=== PATIENT | female | born 1955 | race Caucasian/White ===

== ENCOUNTER → 2018-03-31 | Outpatient (CLI) | payer OTHER ==
[~2018-03-31] MED LIST: INDO50 PO; NAPR500 PO; PRENATAL VIT
[2018-03-31 12:51] LABS: Source, Urine Voided
[2018-03-31 12:57] LABS: BASOPHILS ABSOLUTE AUTO 0.03 K/mm3 (0.00-0.23); BASOPHILS PERCENT AUTO 1 % (0-2); EOSINOPHILS ABSOLUTE AUTO 0.31 K/mm3 (0.00-0.68); EOSINOPHILS PERCENT AUTO 5 % (0-6); Hemoglobin 14.8 g/dL (11.5-16.0); IMMATURE GRAN ABSOLUTE AUTO 0.01 K/mm3 (0.00-0.10); IMMATURE GRAN PERCENT AUTO 0 % (0-1); LYMPHOCYTES ABSOLUTE AUTO 1.67 K/mm3 (0.84-5.20); LYMPHOCYTES PERCENT AUTO 26 % (21-46); MONOCYTES ABSOLUTE AUTO 0.52 K/mm3 (0.16-1.47); MONOCYTES PERCENT AUTO 8 % (4-13); Mean Corpuscular HGB 30.6 pg (26.0-34.0); Mean Corpuscular HGB Conc 35.2 g/dL (31.5-36.5); Mean Corpuscular Volume 87 fL (80-100); Mean Platelet Volume 9.6 fL (9.1-12.4); NEUTROPHILS ABSOLUTE AUTO 3.81 K/mm3 (1.96-9.15); NEUTROPHILS PERCENT AUTO 60 % (41-73); Platelet Count 227 K/mm3 (150-400); RDW Coefficient Variation 11.8 % (11.7-14.2); RDW Standard Deviation 37.5 fL (35.1-46.3); Red Blood Cell Count 4.83 M/mm3 (3.80-5.20); White Blood Cell Count 6.35 K/mm3 (4.00-11.30)
[2018-03-31 13:02] LABS: Bacteria Rare /hpf; Red Blood Cells, Urine Not Seen /hpf (0-2); Squamous Epithelial Cells Few /hpf (Few)
[2018-03-31 13:03] LABS: Calcium Oxalate Crystals Mod /hpf
[2018-03-31 13:10] LABS: Alanine Aminotransfer (ALT/SGP 42 U/L (12-78); Albumin/Globulin Ratio 1.3 (0.8-1.8); Alk Phos 58 U/L (40-126); Anion Gap 10 mmol/L (6-16); Aspartate Aminotrans (AST/SGOT 24 U/L (12-37); Bilirubin, Total 0.5 mg/dL (0.1-1.0); Blood Urea Nitrogen 17 mg/dL (8-24); Bun/Creatinine Ratio 20.2 (12.0-20.0); CO2, Blood 27 mmol/L (21-32); Calcium, Blood 9.1 mg/dL (8.5-10.1); Chloride, Blood 108 mmol/L (98-108); Creatinine, Blood 0.84 mg/dL (0.40-1.00); Glomerular Filtration Rate >60 (60-); Glucose, Blood 103 mg/dL (70-99); Potassium, Blood 3.9 mmol/L (3.5-5.5); Sodium, Blood 145 mmol/L (136-145)
== END | disposition home or self-care (01) ==
LOC: LAB EV 12:49 → LAB SHORT 12:49
PROVIDERS: Physician Assistant
DX: R10.31 Right lower quadrant pain (principal)
CPT/HCPCS: 80053; 81015; 85025; 87086

== ENCOUNTER 2019-02-04 12:18 | Inpatient (IN) | payer OTHER ==
[~2019-02-04] VITALS: Ht 167.6 cm; Wt 85.6 kg
[~2019-02-04 12:18] MED LIST changes: -BISA10S PR; -CLIN300 PO; -DOCU100 PO; -ONDA4ODT MM; -SACC250C PO
[2019-02-04 12:52] LABS: BASOPHILS ABSOLUTE AUTO 0.04 K/mm3 (0.00-0.23); BASOPHILS PERCENT AUTO 0 % (0-2); EOSINOPHILS PERCENT AUTO 1 % (0-6); Hematocrit 35.2 % (33.0-51.0); Hemoglobin 12.2 g/dL (11.5-16.0); IMMATURE GRAN ABSOLUTE AUTO 0.11 K/mm3 (0.00-0.10); IMMATURE GRAN PERCENT AUTO 1 % (0-1); LYMPHOCYTES ABSOLUTE AUTO 1.53 K/mm3 (0.84-5.20); LYMPHOCYTES PERCENT AUTO 10 % (21-46); MONOCYTES ABSOLUTE AUTO 1.58 K/mm3 (0.16-1.47); MONOCYTES PERCENT AUTO 10 % (4-13); Mean Corpuscular HGB 31.4 pg (26.0-34.0); Mean Corpuscular HGB Conc 34.7 g/dL (31.5-36.5); Mean Corpuscular Volume 91 fL (80-100); Mean Platelet Volume 10.1 fL (9.1-12.4); NEUTROPHILS ABSOLUTE AUTO 12.54 K/mm3 (1.96-9.15); NEUTROPHILS PERCENT AUTO 78 % (41-73); Platelet Count 203 K/mm3 (150-400); Red Blood Cell Count 3.88 M/mm3 (3.80-5.20)
[2019-02-04 13:28] LABS: Alanine Aminotransfer (ALT/SGP 43 U/L (12-78); Albumin, Blood 2.9 g/dL (3.4-5.0); Albumin/Globulin Ratio 0.8 (0.8-1.8); Alk Phos 143 U/L (50-136); Anion Gap 7 mmol/L (6-16); Aspartate Aminotrans (AST/SGOT 27 U/L (12-37); Bilirubin, Total 0.6 mg/dL (0.1-1.0); Blood Urea Nitrogen 13 mg/dL (8-24); Bun/Creatinine Ratio 18.3 (12.0-20.0); CO2, Blood 24 mmol/L (21-32); Calcium, Blood 8.9 mg/dL (8.5-10.1); Chloride, Blood 105 mmol/L (98-108); Creatinine, Blood 0.71 mg/dL (0.40-1.00); Globulin, Blood 3.8 g/dL (2.2-4.0); Glomerular Filtration Rate >60 (60-); Glucose, Blood 85 mg/dL (70-99); Potassium, Blood 3.3 mmol/L (3.5-5.5); Sodium, Blood 136 mmol/L (136-145); Total Protein, Blood 6.7 g/dL (6.4-8.2)
[2019-02-04 15:20] LABS: Source, Urine Clean Catch
[2019-02-04 15:54] LABS: Bilirubin, Urine Neg (Neg); Blood, Urine 3+ (Neg); Glucose Qualitative, Urine Neg (Neg); Ketones, Urine 2+ (Neg); Leukocyte Esterase, Urine 1+ (Neg); Nitrite, Urine Neg (Neg); Protein, Urine 2+ (Neg); Urobilinogen, Urine NORM (Normal)
[2019-02-04 16:56] LABS: Appearance, Urine Clear (Clear); Color, Urine Yellow (P-Yellow)
[2019-02-04 18:03] LABS: Bacteria Many /hpf; Squamous Epithelial Cells Many /hpf (Few)
[2019-02-05 05:30] LABS: Hematocrit 32.6 % (33.0-51.0); Hemoglobin 10.8 g/dL (11.5-16.0); Mean Corpuscular HGB 30.9 pg (26.0-34.0); Mean Corpuscular HGB Conc 33.1 g/dL (31.5-36.5); Mean Corpuscular Volume 93 fL (80-100); Mean Platelet Volume 10.4 fL (9.1-12.4); Platelet Count 209 K/mm3 (150-400); RDW Standard Deviation 41.3 fL (35.1-46.3); White Blood Cell Count 11.23 K/mm3 (4.00-11.30)
[2019-02-05 06:10] LABS: Alanine Aminotransfer (ALT/SGP 30 U/L (12-78); Albumin, Blood 2.4 g/dL (3.4-5.0); Albumin/Globulin Ratio 0.7 (0.8-1.8); Alk Phos 126 U/L (50-136); Anion Gap 7 mmol/L (6-16); Aspartate Aminotrans (AST/SGOT 10 U/L (12-37); Bilirubin, Total 0.7 mg/dL (0.1-1.0); Blood Urea Nitrogen 7 mg/dL (8-24); Bun/Creatinine Ratio 9.4 (12.0-20.0); CO2, Blood 27 mmol/L (21-32); Calcium, Blood 8.7 mg/dL (8.5-10.1); Chloride, Blood 107 mmol/L (98-108); Creatinine, Blood 0.74 mg/dL (0.40-1.00); Globulin, Blood 3.3 g/dL (2.2-4.0); Glomerular Filtration Rate >60 (60-); Glucose, Blood 127 mg/dL (70-99); Potassium, Blood 3.6 mmol/L (3.5-5.5); Sodium, Blood 141 mmol/L (136-145); Total Protein, Blood 5.7 g/dL (6.4-8.2)
--- NOTE | 2019-02-05 06:21 | NUR ---
SHIFT SUMMARY PT AWAKE ON/OFF T/O NIGHT DUE TO USING RESTROOM & ADMIISTERING MEDICATIONS. AOX4, FOLLOWS DIRECTIONS, ANSWERS QUESTIONS APPROPRIATELY. VSS. DENIES NAUSEA OR ANY SOB. REPORTS 8/10 PAIN IN NECK DUE TO ARTHRITIS & GROIN/WALTER AREA DUE TO CELLULITIS, MEDICATED 1X W/50 MCG FENTANYL PER ORDERS. GROIN/LABIA/WALTER AREA TO GLUTEUS IS OUTLINED FROM ADMISSION W/MARKER & RED, FIRM, WARM TO TOUCH & HAS SMALL AMOUNT SEROSANGUINOUS DRAINAGE, I CLEANSED THE AREA & LEFT IT OPEN TO AIR FOR PTS COMFORT, PICTURES OF CELLULITIS WERE TAKEN. PT IS STEADY ON FEET & INDEPENDANT IN ROOM. CALL LIGHT IS IN REACH & I WILL CONT TO MONITOR PT.
--- NOTE | 2019-02-05 16:20 | NUR ---
SHIFT SUMMARY THE PATIENT PRESENTED THIS SHIFT WITH CLEAR LUNGS, VITALS WNL, AND A&O X4. THE PATIENT IS INDEPENDENT IN HER ROOM AND CALLS NEEDED. THE PATIENT'S FAMILY WAS IN TO VISIT THIS SHIFT. THE PATIENT TOOK A SHOWER WITH MINIMAL HELP. THE PATIENT IS RECEIVING HER ABX ORDERED AND WAS S/L LOCKED AFTER HER BAG OF FLUIDS. THE PATIENT IS RESTING AND VISITING WITH HER SPOUDE AT THIS TIME, WILL CONTINUE TO MONITOR.
--- NOTE | 2019-02-06 06:10 | NUR ---
SHIFT SUMMARY PT REPORTS SHE SLEPT WELL. NO ACUTE CHANGES THIS SHIFT. AOX4. VSS. DENIES NAUSEA OR SOB. REPORTS BURNING 8/10 PAIN IN PERIANAL/GROIN AREA, MEDICATED 1X W/FENTANYL PER ORDERS & PT DENIES FURTHER DISCOMFORT THIS AM. GROIN/PERIANAL AREA IS STILL RED, WARM TO TOUCH, SWOLLEN & FIRM TO TOUCH W/ONLY SCANT AMOUNT SEROSANGUINOUS DRAINAGE. CALL LIGHT IN REACH & WILL CONTINUE TO MONITOR.
--- NOTE | 2019-02-06 17:33 | NUR ---
SHIFT SUMMARY THE PATIENT PRESENTED THIS SHIFT WITH CLEAR LUNGS, VITALS WNL AND A&O X4. THE PATIENT IS INDEPENDENT IN HER ROOM AND CALLS NEEDED. THE PATIENT'S DOCTOR CHANGED THE PATIENT ABX TODAY AND ASK THE NUSES TO WATCH THE PATIENT BM,S FOR INCREASE OF LOOSE STOOLS, WHICH MAY SIGNAL A CHANGE IN ABX IS NEEDED. THE PATIENT'S FAMILY WAS IN TODAY TO VISIT. THE PATIENT IS RESTING AT THIS TIME, WILL CONTINUE TO MONITOR.
--- NOTE | 2019-02-07 06:32 | NUR ---
SHIFT SUMMARY PT SLEPT WELL T/O NIGHT. NO ACUTE CHANGES. DENIES N/V OR SOB. REPORTS 8/10 PAIN IN GROIN/PERIANAL REGION, MEDICATED ONLY 1X W/FENTANYL PER ORDERS. REDNESS APPEARS TO HAVE DECREASED IN PERIANAL REGION, IT IS NOT BRIGHT ANGRY RED & IS MORE PINK, STILL FIRM W/TOUCH, HOWEVER ONLY SCANT AMOUNT SEROSANGUINOUS DRAINAGE NOTED. CALL LIGHT IN REACH & I WILL CONTINUE TO MONITOR.
--- NOTE | 2019-02-07 09:10 | NUR ---
AMBULATORY STEADY GAIT. ALERT AND ORIENTED. REDNESS IS MORE LIKE DARK PINK TO GROIN AND BUTTOCK AND LESS THAN OUTLINED AREA. BUTTOCK IS DARKER THAN GROIN AREA. MEDICATED FOR PAIN W/GOOD RESULTS. WILL CONTINUE TO MONITOR.
[2019-02-07] MEDS ORDERED: BISA10S PR ×2 (15:33)
[2019-02-07] MEDS ORDERED: DOCU100 PO ×2 (15:34)
[2019-02-07] MEDS ORDERED: CLIN300 PO ×2 (15:34)
[2019-02-07] MEDS ORDERED: SACC250C PO ×2 (15:35)
[2019-02-07] MEDS ORDERED: ONDA4ODT MM ×2 (15:35)
--- NOTE | 2019-02-07 16:43 | NUR ---
REVIEW D'C W/PATIENT AND S.O. AWARE TO MAKE F/U APPT. AWARE TO [facility] AT [facility] AND START ANTIBIOTIC TONIGHT. AWARE TO WATCH FOR WORSEING SIGNS AND TO GO TO E.R. IF GETTING WORSE. REVIEW ALL MEDS. ANSWER ALL QUESTIONS. [employer] TO TAKE DOWN IN W/C. GIVEN MD NOTE FOR WORK.
== END 2019-02-07 17:01 | disposition home or self-care (01) | DRG 872 ==
LOC: ER 12:18 → MEDS 19:42 → ERHOLD 19:42 → MEDS 22:31
PROVIDERS: Physician Assistant; ADMIT Internal Medicine
DX: A41.02 Sepsis due to Methicillin resistant Staphylococcus aureus (principal); L03.315 Cellulitis of perineum
CPT/HCPCS: 36415; 72193; 80053; 81001; 83605; 85025; 85027; 87040; 87086; 93005; 93010; 96361-59; 96365-59; 96375-59; 99284-25; J0690; J1170; J1650; J2405; J2543; J3010; J3370; J3480; J7030; J7120; Q9967

== ENCOUNTER → 2019-02-04 | Outpatient (CLI) | payer OTHER ==
[~2019-02-04] MED LIST changes: +BISA10S PR; +CLIN300 PO; +DOCU100 PO; +ONDA4ODT MM; +SACC250C PO
[2019-02-04 11:19] LABS: BASOPHILS ABSOLUTE AUTO 0.03 K/mm3 (0.00-0.23); BASOPHILS PERCENT AUTO 0 % (0-2); EOSINOPHILS ABSOLUTE AUTO 0.15 K/mm3 (0.00-0.68); EOSINOPHILS PERCENT AUTO 1 % (0-6); Hematocrit 34.4 % (33.0-51.0); Hemoglobin 12.1 g/dL (11.5-16.0); IMMATURE GRAN ABSOLUTE AUTO 0.14 K/mm3 (0.00-0.10); IMMATURE GRAN PERCENT AUTO 1 % (0-1); LYMPHOCYTES ABSOLUTE AUTO 1.18 K/mm3 (0.84-5.20); LYMPHOCYTES PERCENT AUTO 8 % (21-46); MONOCYTES ABSOLUTE AUTO 1.63 K/mm3 (0.16-1.47); MONOCYTES PERCENT AUTO 11 % (4-13); Mean Corpuscular HGB 30.6 pg (26.0-34.0); Mean Corpuscular HGB Conc 35.2 g/dL (31.5-36.5); Mean Corpuscular Volume 87 fL (80-100); Mean Platelet Volume 10.1 fL (9.1-12.4); NEUTROPHILS ABSOLUTE AUTO 11.85 K/mm3 (1.96-9.15); NEUTROPHILS PERCENT AUTO 79 % (41-73); Platelet Count 216 K/mm3 (150-400); RDW Coefficient Variation 12.1 % (11.7-14.2); RDW Standard Deviation 38.8 fL (35.1-46.3); Red Blood Cell Count 3.95 M/mm3 (3.80-5.20); White Blood Cell Count 14.98 K/mm3 (4.00-11.30)
== END ==
LOC: LAB SHORT 11:14 → LAB EV 11:14
PROVIDERS: Emergency Medicine
DX: N73.2 Unspecified parametritis and pelvic cellulitis (principal)
CPT/HCPCS: 85025

== ENCOUNTER 2019-10-17 10:44 | Day surgery (SDC) | payer OTHER ==
[~2019-10-17] VITALS: Ht 167.6 cm; Wt 75.5 kg
[~2019-10-17 10:44] MED LIST changes: +BISA10S PR; +CLIN300 PO; +DOCU100 PO; +ONDA4ODT MM; +SACC250C PO
--- NOTE | 2019-10-17 12:35 | NUR ---
10/17/19 1235 GLORIA GOOD ONE IV BAD DUE TO PT MOVING BLEW BECAUSE OF MOVEMENT. ONE GOOD IV IN AC BY LESLYE
--- NOTE | 2019-10-17 14:27 | NUR ---
10/17/19 1427 Mami Malhotra S COLONOSCOPY [id number] THEN WANTED TO GO BACK IN TO DO SOME RANDOM COLON BXS, RESTARTED AT 1421. DONE AT 1424 AFTER RANDOM COLON BXS DONE. NO FURTHER SEDATION NEEDED FOR THIS. LARGER PORTION OF CECAL POLYP NOT RETRIEVED BUT THERE WERE SOME PIECES REMOVED ALSO WITH BX FORCEP WHICH WERE SENT IN FORMALIN. WAS AWARE LARGER PORTION OF POLYP NOT RETRIEVED.
--- NOTE | 2019-10-17 17:49 | NUR ---
10/17/19 174 Mami Malhotra WHEN ASKED PT. IF SHE HAD ANY PAIN, PT. VERBALIZED THAT HER STOMACH FELT A LITTLE SORE, FELT LIKE AIR IN HER STOMACH. DR. CHAPMAN.
== END 2019-10-17 15:05 | disposition home or self-care (01) ==
LOC: ORSCSDS 10:44
PROVIDERS: Student in an Organized Health Care Education/Training Program
PROC: 0DBH8ZX Excision of Cecum, Via Natural or Artificial Opening Endoscopic, Diagnostic (ICD-10-PCS; principal; 2019-10-17 12:30)
PROC: 0DB98ZX Excision of Duodenum, Via Natural or Artificial Opening Endoscopic, Diagnostic (ICD-10-PCS; principal; 2019-10-17 12:30)
PROC: 0DB48ZX Excision of Esophagogastric Junction, Via Natural or Artificial Opening Endoscopic, Diagnostic (ICD-10-PCS; principal; 2019-10-17 12:30)
PROC: 0DBE8ZX Excision of Large Intestine, Via Natural or Artificial Opening Endoscopic, Diagnostic (ICD-10-PCS; principal; 2019-10-17 12:30)
PROC: 0DB68ZX Excision of Stomach, Via Natural or Artificial Opening Endoscopic, Diagnostic (ICD-10-PCS; principal; 2019-10-17 12:30)
DX: D64.9 Anemia, unspecified (principal); D12.0 Benign neoplasm of cecum; D37.4 Neoplasm of uncertain behavior of colon; K64.8 Other hemorrhoids; K29.70 Gastritis, unspecified, without bleeding; K92.1 Melena; R19.7 Diarrhea, unspecified
CPT/HCPCS: 88305; 88342; J2704; J7120

== ENCOUNTER 2022-11-21 03:46 | Emergency (ER) | payer OTHER, MEDICARE ==
[~2022-11-21] VITALS: Ht 167.6 cm; Wt 79.4 kg
[~2022-11-21 03:46] MED LIST changes: +MULTI-VITAMIN1 EAC2 PO
[2022-11-21 04:04] LABS: BASOPHILS ABSOLUTE AUTO 0.05 K/mm3 (0.00-0.23); BASOPHILS PERCENT AUTO 1 % (0-2); EOSINOPHILS ABSOLUTE AUTO 0.42 K/mm3 (0.00-0.68); EOSINOPHILS PERCENT AUTO 7 % (0-6); Hematocrit 41.4 % (33.0-51.0); Hemoglobin 14.5 g/dL (11.5-16.0); IMMATURE GRAN PERCENT AUTO 0 % (0-1); LYMPHOCYTES ABSOLUTE AUTO 1.83 K/mm3 (0.84-5.20); LYMPHOCYTES PERCENT AUTO 31 % (21-46); MONOCYTES ABSOLUTE AUTO 0.52 K/mm3 (0.16-1.47); MONOCYTES PERCENT AUTO 9 % (4-13); Mean Corpuscular Volume 89 fL (80-100); Mean Platelet Volume 9.2 fL (9.1-12.4); NEUTROPHILS ABSOLUTE AUTO 3.02 K/mm3 (1.96-9.15); NEUTROPHILS PERCENT AUTO 52 % (41-73); Platelet Count 179 K/mm3 (150-400); RDW Coefficient Variation 11.9 % (11.7-14.2); RDW Standard Deviation 38.5 fL (35.1-46.3); Red Blood Cell Count 4.67 M/mm3 (3.80-5.20); White Blood Cell Count 5.84 K/mm3 (4.00-11.30)
[2022-11-21 04:29] LABS: Albumin, Blood 3.7 g/dL (3.4-5.0); Albumin/Globulin Ratio 1.4 (0.8-1.8); Bilirubin, Total 0.4 mg/dL (0.1-1.0); Creatinine, Blood 0.7 mg/dL (0.40-1.00); Globulin, Blood 2.7 g/dL (2.2-4.0); Potassium, Blood 3.9 mmol/L (3.5-5.5); Total Protein, Blood 6.4 g/dL (6.4-8.2)
== END 2022-11-21 07:51 | disposition home or self-care (01) ==
LOC: ER 03:46
PROVIDERS: Student in an Organized Health Care Education/Training Program
DX: R07.89 Other chest pain (principal); Z88.8 Allergy status to other drugs, medicaments and biological substances; Z91.011 Allergy to milk products; Z88.1 Allergy status to other antibiotic agents; Z91.018 Allergy to other foods
CPT/HCPCS: 36415; 71046; 80053; 83880; 84484; 85025; 93005; 93010

== ENCOUNTER → 2025-06-07 | Outpatient (CLI) | payer OTHER ==
[2025-06-07 13:47] LABS: Campylobacter Sp Not Detected (NOT DETECT); E. Coli O157 Not Detected (NOT DETECT); Enteroaggregative E. coli-EAEC Not Detected (NOT DETECT); Enteropathogenic E. coli-EPEC Not Detected (NOT DETECT); Enterotoxigenic E. coli-ETEC Not Detected (NOT DETECT); Salmonella Sp Not Detected (NOT DETECT); Shiga Toxin-prod E. coli-STEC Not Detected (NOT DETECT); Shigella/Enteroin E. coli-EIEC Not Detected (NOT DETECT); Vibrio Sp Not Detected (NOT DETECT)
== END | disposition home or self-care (01) ==
LOC: LAB 08:25 → LAB SHORT 08:25
PROVIDERS: Internal Medicine
DX: R19.7 Diarrhea, unspecified (principal)
CPT/HCPCS: 87507